=== PATIENT | male | born 1985 | race Two or more races ===

== ENCOUNTER 2017-03-10 10:49 | Emergency (ER) | payer SELFPAY ==
[2017-03-10 10:54] VITALS: BP 123/79; PULSE 110; RESP 18; TEMP 98; O2SAT 100
--- NOTE | 2017-03-10 11:41 | C.PDOC ---
History Of Present Illness 31 y/o male presents to ED with complaints of swelling and pain to left index finger worse with movement since yesterday. Patient states yesterday he was playing baseball and slid bending index finger backward. Patient denies change in sensation or any other complaints at this time. Time Seen by Provider: 03/10/17 11:14 Chief Complaint (Nursing): Upper Extremity Problem/Injury History Per: Patient History/Exam Limitations: no limitations Onset/Duration Of Symptoms: Days Current Symptoms Are (Timing): Still Present Quality: "Pain" Past Medical History Reviewed: Historical Data, Nursing Documentation, Vital Signs Vital Signs: Last Vital Signs Temp 98 F 03/10/17 10:52 Pulse 110 H 03/10/17 10:52 Resp 18 03/10/17 10:52 BP 123/79 03/10/17 10:52 Pulse Ox 100 03/10/17 12:20 - Medical History PMH: No Chronic Diseases Surgical History: No Surg Hx Family History: States: No Known Family Hx - Social History Hx Alcohol Use: No Hx Substance Use: No - Immunization History Hx Tetanus Toxoid Vaccination: No Hx Influenza Vaccination: No Hx Pneumococcal Vaccination: No Review Of Systems Musculoskeletal: Positive for: Hand Pain Skin: Negative for: Rash, Bruising Neurological: Negative for: Weakness, Numbness Physical Exam - Physical Exam Appears: Non-toxic, No Acute Distress Skin: Warm, Dry, No Rash Head: Atraumatic, Normacephalic Eye(s): bilateral: Normal Inspection Oral Mucosa: Moist Neck: Supple Chest: Symmetrical Extremity: Tenderness (Mild to PIP and MCP of left 2nd digit), Capillary Refill (<2 seconds), No Deformity, Swelling (Mild to PIP and MCP of left 2nd digit) Pulses: Left Radial: Normal, Right Radial: Normal Neurological/Psych: Oriented x3, Normal Motor, Normal Sensation ED Course And Treatment O2 Sat by Pulse Oximetry: 100 (RA) Pulse Ox Interpretation: Normal - Other Rad Left hand 2nd digit X-Ray: Viewed By Me, Read By Radiologist Interpretation: Left hand 2nd digit three views. History: Pain. Comparison: None available. Findings: No evidence of acute displaced fracture or dislocation. Visualized joint spaces appear preserved. Impression: Negative acute. If pain persists, consider MRI. Medical Decision Making Medical Decision Making: Impression: finger injury s.p sports contact Plan: Xray of hand. Declined any pain medication Progress: Xray of hand viewed by me and radiology report reviewed. No fracture or dislocation. Patient advised to rest ice and take NSAID for any pain. Disposition Counseled Patient/Family Regarding: Diagnosis, Need For Followup, Rx Given - Disposition Referrals: Gustabo Sparks III, MD [Staff Provider] - Disposition: HOME/ ROUTINE Disposition Time: 11:40 Condition: GOOD Additional Instructions: Your xray was normal, no fracture. Please apply ice to area 15 minutes three times a day. Take Motrin as needed for pain every 6 hours, with food to not upset stomach. Follow up with orthopedic if pain persists over one week. Prescriptions: Ibuprofen [Motrin] 600 mg PO Q8 #30 tab Instructions: Finger Sprain (ED) Forms: [employer] ([place]) - POA Present On Arrival: None - Clinical Impression Clinical Impression: Finger sprain - PA / [employer]ING [employer] / Resident Statement MD/DO has reviewed & agrees with the documentation as recorded. - Scribe Statement The provider has reviewed the documentation as recorded by the Jessicaibtatiana Kennedy All medical record entries made by the Jessicaibtatiana were at my direction and personally dictated by me. I have reviewed the chart and agree that the record accurately reflects my personal performance of the history, physical exam, medical decision making, and the department course for this patient. I have also personally directed, reviewed, and agree with the discharge instructions and disposition.
--- NOTE | 2017-03-10 11:42 | RAD ---
Left hand 2nd digit three views History: Pain. Comparison: None available. Findings: No evidence of acute displaced fracture or dislocation. Visualized joint spaces appear preserved. Impression: Negative acute. If pain persists, consider MRI.
== END 2017-03-10 11:57 | disposition home or self-care (01) ==
LOC: C.ER 10:49
DX: S63.611A Unspecified sprain of left index finger, initial encounter (principal); X58.XXXA Exposure to other specified factors, initial encounter; Y93.64 Activity, baseball